=== PATIENT | female | born 1995 | race Caucasian/White ===

== ENCOUNTER 2022-04-08 16:36 | Emergency (ER) | payer OTHER ==
[~2022-04-08] VITALS: Ht 160 cm; Wt 71.6 kg
[2022-04-08] MEDS ORDERED: ADIPEX-P37.5 MG PO (16:42)
[2022-04-08 17:55] LABS: BASO % 0.6 % (0.0-1.0); EOS # 0.1 10*3/uL (0.0-0.4); EOS % 2.8 % (1.0-4.0); HEMATOCRIT 42.9 % (42.0-52.0); LYMPH # 1.6 10*3/uL (1.3-4.4); LYMPH % 33.3 % (27.0-41.0); MEAN CELL VOLUME 82.5 fl (80.0-94.0); MEAN CORPUSCULAR HGB 29.6 pg (27.0-31.0); MEAN CORPUSCULAR HGB CONC 35.9 g/dl (33.0-37.0); MEAN PLATELET VOLUME 9.8 fl (9.6-12.3); MONO # 0.7 10*3/uL (0.1-1.0); MONO % 14.4 % (3.0-9.0); NEUT # 2.4 10*3/uL (2.3-7.9); NEUT % 48.7 % (47.0-73.0); PLATELET COUNT AUTOMATED 228 10*3/uL (130-400); RED CELL DISTRI WIDTH 12.7 % (0-14.5); WHITE BLOOD COUNT 4.9 10*3/uL (4.8-10.8)
[2022-04-08 18:00] LABS: BILIRUBIN Negative (Negative); BLOOD 2+ (Negative); CLARITY Clear (Clear); COLOR Dark Yellow (Yellow); GLUCOSE Negative (Negative); KETONE 3+ (Negative); LEUKO ESTERASE Negative (Negative); NITRITE Negative (Negative); PH 5.5 (4.5-8.0); SPECIFIC GRAVITY >= 1.030 (1.001-1.030)
[2022-04-08 18:14] LABS: ALKALINE PHOSPHATASE 77 U/L (45-117); BUN 10 mg/dl (7-24); CHLORIDE 109 mmol/L (98-107); CREATININE 0.54 mg/dL (0.55-1.02); LIPASE 99 U/L (73-393); POTASSIUM 3.4 mmol/L (3.5-5.1); SGOT/AST 10 IU/L (3-35); SGPT/ALT 19 U/L (12-78); SODIUM 139 mmol/L (136-145); TOTAL PROTEIN 6.9 gm/dL (6.4-8.2)
[2022-04-08 18:35] LABS: BACTERIA 1+; CALCIUM OXALATE CRYSTALS 2+; WBC 0-2 wbc/hpf (0-5)
[2022-04-08 18:36] LABS: MUCOUS 1+; RBC 0-2 rbc/hpf (0-2)
[2022-04-08] MEDS ORDERED: FLOMAX0.4 MG PO (18:47)
[2022-04-08] MEDS ORDERED: HYDROCODONE-AC1 EAC1 PO (18:47)
== END 2022-04-08 19:00 | disposition home or self-care (01) ==
LOC: ED 16:36 → EDSEX 17:34 → ED 19:00
PROVIDERS: Family Medicine
DX: N20.0 Calculus of kidney (principal); Z79.899 Other long term (current) drug therapy